=== PATIENT | female | born 1945 | race Caucasian/White ===

== ENCOUNTER 2024-09-29 07:41 | Emergency (ER) | payer MEDICARE, OTHER, SELFPAY ==
[2024-09-29 07:43] VITALS: BP 178/94
--- NOTE | 2024-09-29 08:39 | ED.GENMED ---
History of Present Illness
General
Chief Complaint: Fall
Source: patient
Time Seen by Provider: 09/29/24 08:25
History of Present Illness
History of Present Illness:
The patient is an 79-year-old female, currently experiencing a headache following a fall four days ago, during which she hit her head and developed a significant hematoma on her forehead. The incident occurred when she slipped and fell forward in
[place], and she is unsure if she lost consciousness. Her main complaint now is a persistent headache.
Following the fall, she received a computed tomography (CT) scan of her head in [place], which did not show any immediate need for additional intervention, although a repeat scan was suggested 12 hours later. However, she left the hospital before this
could be done. She reports ongoing pain in her head and has localized bruising, which has extended down into her chest. She complained of a headache, saying, 'Im hurting,' and believes her pain is linked to the incident, although she is uncertain if
the headache is worsening.
The patients fall does not appear to have been preceded by dizziness or other symptoms; she describes it as mechanical. She is particularly concerned due to her current use of the anticoagulant medication, Apixaban (Eliquis). She flew home last
night after not being fully reassured by the healthcare team in [place] regarding her condition.
She is also expressing concern about her vision, which is temporarily impaired due to swelling and discharge around her eyelashes, but states, without this, she can see normally. She did not believe she injured her knees in the fall but described
past issues with knee discomfort and stiffness.
Past History
Past History
ED Past Medical History: Other (Read and agree with the documented past medical history)
ED Past Surgical History: Other (Red and agree with past surgical history)
Social History
Personal:
Living: with family
Phy Exam
Physical Exam
Physical Exam:
General: Well-appearing female no acute respiratory distress
HEENT: Normocephalic large hematoma left forehead with overlying abrasion. There is settling ecchymosis throughout the face and into the upper chest
Heart: Regular rate and rhythm
Lungs: Clear no wheeze
Musculoskeletal exam: Mild diffuse paraspinous tenderness of the neck. Good range of motion all extremities slight tenderness to the anterior knees bilaterally
Neurologic exam: Alert and oriented conversing appropriately good strength to the upper and lower extremities
Course
Orders/Labs/Results
Orders:
Orders
09/29/24 08:36
CT Cervical Spine W/o Iv Contr Urgent
Comment:
Reason For Exam: fall
Lorazepam [Ativan] 0.5 mg IV NOW STA
CR Knee - Left 4 Or More View* Urgent
Comment:
Reason For Exam: fall
CR Knee- Right 4 Or More View* Urgent
Comment:
Reason For Exam: fall
09/29/24 08:37
CT Head W/o Iv Contrast Urgent
Comment:
Reason For Exam: fall
09/29/24 08:38
Acetaminophen [Tylenol] 650 mg PO NOW STA
09/29/24 08:57
Complete Blood Count/With Diff Urgent
Comprehensive Metabolic Panel Urgent
Abnormal Lab Results
09/29/24
08:57
MCH 31.7 H pg
(27.0-31.0)
Lymphocytes % 16.8 L %
(20.5-51.1)
Chloride 110 H mmol/L
(98-107)
Glucose 100 H mg/dl
(70-99)
Total Bilirubin 1.4 H mg/dl
(0.2-1.3)
09/29/24 08:57
09/29/24 08:57
Vital Signs
Initial and Last Documented VS:
Initial Vital Signs
Temp Pulse Resp BP Pulse Ox
98.0 F 64 16 178/94 94
09/29/24 07:43 09/29/24 07:43 09/29/24 07:43 09/29/24 07:43 09/29/24 07:43
Last Documented Vital Signs
Temp Pulse Resp BP Pulse Ox
98.0 F 64 16 178/94 94
09/29/24 07:43 09/29/24 07:43 09/29/24 07:43 09/29/24 07:43 09/29/24 07:43
MDM/Problems Addressed
Differential Diagnosis Includes:
The Differential Diagnosis includes, in no particular order and is not limited to:
- Subdural hematoma
- Concussion
- Traumatic brain injury
- Orbital fracture
- Post-traumatic headache
- Meningeal irritation
- Perform CT scan of the head and neck to assess for any delayed bleeding or further injuries due to anticoagulant use.
- X-ray the knees to evaluate for any unnoticed injury, given ongoing discomfort.
- Start an intravenous line to facilitate blood work and potential administration of medication.
- Administer Lorazepam for anxiety management prior to the CT scan due to patient expressed concern about claustrophobia and panic.
- Provide a dose of Acetaminophen for pain relief, withholding any oral intake until after imaging.
MDM/Problems Addressed:
Acute:
- Head injury with hematoma
- Headache
- Periorbital swelling with discharge
- Possible anxiety/panic related to imaging procedure
*Pulse Oximetry
Patient hypoxic: no
Comment: 94%
*Critical Care Note
Total Time (30-74mins, 75-104mins- exclusive of procedures): Not Applicable
Update Note
Update Note:
CT of head shows the following
1. 6 mm increased attenuation focus in the right cerebellum as above. Absence of any adjacent edematous changes suggests that this is more likely to represent small calcification rather than very small recent hemorrhage. Hemorrhage is not
definitively excluded and there are no prior studies for comparison. A short-term follow-up examination could be obtained as warranted to evaluate for stability.
Patient's injuries 4 days ago. No need for repeat CAT scan here. Neurologically she is intact. She is ambulatory. Wound care instructions and hematoma structures given. Advise follow-up with neurosurgeon
ED Attending Note
-
Portions of this chart may have been created with voice recognition software.� Occasional wrong word or��sound alike� substitutions may have occurred due to the inherent limitations of voice recognition software.
Discharge Plan
Departure
Patient Disposition: Home (Routine Discharge)
Date of Disposition: 09/29/24
Time of Disposition: 12:40
Patient with high blood pressure during this ER visit?: No
Discharge Problem:
Hematoma
Instructions: Concussion, Adult (DC), Wound Care (DC)
Prescriptions:
No Action
prednisone 20 MG tablet
40 mg PO DAILY Qty: 8 0RF
oxycodone-acetaminophen 5 MG/325 MG tablet
1 tab PO Q4HPRN PRN (Reason: pain) Qty: 10 0RF
Referrals:
Michelle Mullen MD [Active, Neurosurgery]
UNKNOWN - PT DOES,NOT KNOW [Family Provider]
Activity Restrictions/Additional Instructions:
Use tylenol for headache. return for worsening symptoms otherwise follow up with neurosurgery
Interventions
Interventions:
*Risk Screen - Suicide Last Done: 09/29/24 07:43
*General Assessment Last Done: 09/29/24 07:43
*Neglect/Abuse Screening Last Done: 09/29/24 11:28
*ED COVID-19 Vaccine History Last Done: 09/29/24 11:28
ED-Musculoskeletal Assessment Last Done: 09/29/24 11:06
ED- Neurological Assessment Last Done: 09/29/24 11:06
ED-Skin Assessment Last Done: 09/29/24 11:06
Discharge Date and Time
Print Language: TURKMEN
[2024-09-29] MEDS: TYLENOL 650 MG PO (09:00)
[2024-09-29] MEDS: ATIVAN 0.5 MG IV (09:00)
[2024-09-29 09:05] LABS: % Basophils 1.8 % (0-2); % Immature Granulocytes 0.3 % (0-0.5); % Lymphocytes 16.8 % (20.5-51.1); % Monocytes 6.8 % (1.7-9.3); % Neutrophils 71.3 % (42.2-75.2); Absolute Basophils 0.1 10^3/uL (0-0.2); Absolute Eosinophils 0.2 10^3/uL (0-0.7); Absolute Lymphocytes 1.2 10^3/uL (1.2-3.4); Absolute Monocytes 0.5 10^3/uL (0.1-0.6); Absolute Neutrophils 5.3 10^3/uL (1.4-6.5); Hematocrit 46.1 % (37.0-47.0); Hemoglobin 15.9 g/dL (12.0-16.0); Mean Corp Hgb Conc. 34.5 g/dL (33.0-37.0); Mean Corpuscular Hgb 31.7 pg (27.0-31.0); Mean Platelet Volume 9.9 fL (7.4-10.4); Nucleated Red Blood Cells % 0 %; Platelet Count 226 10^3/uL (130-400); Red Blood Cell Count 5.01 10^6/uL (4.20-5.40); Red Cell Dist. Width 13.8 % (11.5-14.5); White Blood Cell Count 7.4 10^3/uL (4.8-10.8)
[2024-09-29 09:34] LABS: ALT (SGPT) 13 U/L (0-35); AST (SGOT) 20 U/L (14-36); Albumin 4.2 g/dl (3.5-5.0); Alkaline Phosphatase 85 U/L (38-126); Blood Urea Nitrogen 16 mg/dl (7-17); Calcium 9.2 mg/dl (8.4-10.2); Carbon Dioxide 25 mmol/L (22-30); Chloride 110 mmol/L (98-107); Glucose 100 mg/dl (70-99); Potassium 4.5 mmol/L (3.5-5.1); Sodium 141 mmol/L (135-145); Total Bilirubin 1.4 mg/dl (0.2-1.3); Total Protein 6.8 g/dl (6.3-8.2); eGFR > 60.00
== END 2024-09-29 12:56 | disposition home or self-care (01) ==
LOC: EMR 07:41
PROVIDERS: Physician Assistant; EMERGENCY PHYSICIAN Emergency Medicine
DX: S00.83XA Contusion of other part of head, initial encounter (principal); S20.219A Contusion of unspecified front wall of thorax, initial encounter; W01.0XXA Fall on same level from slipping, tripping and stumbling without subsequent striking against object, initial encounter
CPT/HCPCS: 96374; 99284; 70450; 72125; 73564; 80053; 85025

== ENCOUNTER 2025-04-03 04:18 | Emergency (ER) | payer BC, MEDICARE, OTHER, SELFPAY ==
[2025-04-03 04:20] VITALS: BP 167/84
[2025-04-03 04:23] VITALS: BP 167/84
[2025-04-03 04:38] VITALS: BMI 710000.0
[2025-04-03 05:00] VITALS: BP 170/86
[2025-04-03 06:00] VITALS: BP 133/47
--- NOTE | 2025-04-03 06:01 | ED.GENMED ---
History of Present Illness
General
Chief Complaint: Nose Bleed
Source: patient
Time Seen by Provider: 04/03/25 04:19
Nursing documentation reviewed up to this point in time: agreed with
History of Present Illness
History of Present Illness:
Note:
CHIEF COMPLAINT(S)
Epistaxis (nosebleed) from the left nostril.
HISTORY OF PRESENT ILLNESS
The patient is an 80-year-old female with a history of atrial fibrillation, for which she is on Apixaban (Eliquis) therapy. She presented with a nosebleed, which has been ongoing for a couple of days. The patient seeks evaluation as the bleed seems
to now be coming predominantly from the left nostril and is accompanied by coughing. She reports that the bleeding initially started over the last couple of days, prompting her to visit her primary care physician the previous day. However, she was
then uncertain if the source of bleeding was exclusively from the nose or elsewhere, making it difficult for her to identify the exact site. The patient denies a history of frequent nosebleeds. She was stable upon arrival but began to bleed during
the encounter.
PAST MEDICAL AND SURIGICAL HISTORY
Atrial fibrillation (on Apixaban/Eliquis).
MEDICATIONS
Apixaban (Eliquis) once daily for atrial fibrillation.
PHYSICAL EXAM
General: Alert, no acute distress.
Skin: Warm, dry.
Head: Normocephalic, atraumatic.
Neck: Supple, trachea midline.
Eyes, Ears, Nose, and Throat: Oral mucosa moist. Bleeding observed from the left nostril, with noted blood clotting.
Cardiovascular: Normal peripheral perfusion, No edema.
Respiratory: Respirations are non-labored.
Gastrointestinal: Abdomen nondistended.
Back: Normal range of motion, Normal alignment.
Musculoskeletal: Normal range of motion, normal strength.
Neurological: Alert and oriented to person, place, time, and situation, No focal neurological deficit observed.
Psychiatric: Cooperative, appropriate mood & affect.
PLAN
Insert nasal packing with phenylephrine-impregnated material to constrict blood vessels and control the bleeding.
Advise patient not to manipulate or touch the packing to prevent further bleeding.
Reassess the efficacy of the nasal packing after approximately 30 minutes. If bleeding persists, consider additional interventions.
DIFFERENTIAL DIAGNOSIS
The Differential Diagnosis includes, in no particular order and is not limited to:
1. Epistaxis secondary to anticoagulation therapy (Apixaban).
2. Hypertension-induced epistaxis.
3. Dryness or irritation of the nasal mucosa.
4. Intranasal lesions or neoplasm.
5. Coagulation disorders.
6. Trauma to the nasal passages.
7. Vascular malformations within the nasal cavity.
8. Infectious causes leading to mucosal compromise.
9. Systemic conditions such as anemia.
10. Autoimmune conditions affecting mucosal integrity.
Disposition:
SUMMARY OF ENCOUNTER
An 80-year-old female with a history of atrial fibrillation on Apixaban presented to the emergency department with a nosebleed predominantly from the left nostril. Upon arrival, the bleeding had mostly stopped, but a re-bleeding episode occurred.
Nasal packing with a Merocel was applied to the left nostril, left in place for about 45 minutes, after which bleeding had ceased. The Merocel was not saturated. An area of fresh extravascularization was noted and successfully cauterized. The
patient tolerated the procedure well and expressed a desire to be discharged.
DISPOSITION
Discharge
PLAN
- Discharge the patient with instructions to follow up with ENT as needed.
- Advise the patient on signs of re-bleeding to watch for and actions to take if it occurs.
- Ensure no packing remains in place upon discharge.
PROCEDURES
- Nasal packing with Merocel applied to the left nostril for 45 minutes.
- Cauterization of the identified area of fresh extravasation in the left nostril.
PATIENT EDUCATION AND COUNSELING
The patient was counseled on monitoring for signs of re-bleeding and instructed to follow up with ENT as needed.
FOLLOW-UP INSTRUCTIONS
The patient is advised to follow up with ENT as necessary, particularly if there is any recurrence of the nosebleed.
MEDICATION RECONCILIATION
Apixaban (Eliquis) for atrial fibrillation.
MEDICAL DECISION MAKING
- Number and Complexity of Problems Addressed: Chronic conditions affecting care [Atrial fibrillation on Apixaban]
- Data:
Category 1:
- Reviewed non-emergency department records concerning patients current medication regimen (Apixaban).
- Risk: Prescription drug management noted due to the patient being on Apixaban, which affects bleeding risk.
DIAGNOSIS
- Epistaxis, likely exacerbated by anticoagulation therapy (ICD-10: R04.0)
Past History
Past History
ED Past Medical History: Other (Read and agree with the documented past medical history)
ED Past Surgical History: Other (Red and agree with past surgical history)
Social History
Personal:
Living: with family
Phy Exam
Physical Exam
Physical Exam:
.
Course
Orders/Labs/Results
Orders:
Orders
04/03/25 04:55
Phenylephrine 0.5% Regular Spr [Ivan-Synephrine 0.5% Nasal [place]] 1 spray .ROUTE .STK-MED ONE
Vital Signs
Initial and Last Documented VS:
Initial Vital Signs
BP
167/84
04/03/25 04:20
Last Documented Vital Signs
Temp Pulse Resp BP Pulse Ox
98.4 F 60 16 133/47 96
04/03/25 04:23 04/03/25 07:07 04/03/25 07:07 04/03/25 07:07 04/03/25 07:07
*Pulse Oximetry
SaO2: 90
Oxygen Mode of Delivery: Room air
Patient hypoxic: no
*Critical Care Note
Total Time (30-74mins, 75-104mins- exclusive of procedures): Not Applicable
ED Attending Note
-
Portions of this chart may have been created with voice recognition software.� Occasional wrong word or��sound alike� substitutions may have occurred due to the inherent limitations of voice recognition software.
Discharge Plan
Departure
Patient Disposition: Home (Routine Discharge)
Date of Disposition: 04/03/25
Time of Disposition: 06:02
Patient with high blood pressure during this ER visit?: Yes
Condition: Good
Discharge Problem:
Epistaxis
Instructions: Nosebleeds (DC), BLOOD PRESSURE
Prescriptions:
New
cephalexin 250 mg capsule
250 mg PO BID 7 Days Qty: 14 0RF
No Action
prednisone 20 MG tablet
40 mg PO DAILY Qty: 8 0RF
oxycodone-acetaminophen 5 MG/325 MG tablet
1 tab PO Q4HPRN PRN (Reason: pain) Qty: 10 0RF
Referrals:
Ben Winn MD [Active, Otology]
NONE,* [Family Provider, Internal Medicine]
Activity Restrictions/Additional Instructions:
Thank You for choosing [facility].
It was a pleasure meeting you and taking part in your care. We hope for your continued healing and wellness.
Please read discharge instructions in their entirety. However, they are for general education and may not describe your exact diagnosis at discharge. Information on your ER visit and medical conditions were discussed with you along with appropriate
follow up information...
If indicated, please take your medications as instructed and indicated on discharge paperwork.
Please schedule a follow up appointment as directed. Call to schedule an appointment
Please return to the emergency department with ANY change in, persisting, or worsening of symptoms. If any of your symptoms do not improve, or persist, or become more severe within 6-12 hours, please return to the emergency department for further
care.
Please return to the emergency department if you develop a headache, neck pain/stiffness, fever greater than 100.4F, chest pain, shortness of breath, persistent nausea, vomiting, slurred speech, difficulty walking, numbness/tingling, weakness, signs
of infection or any other symptoms that are worrisome to you.
If you have any questions or concerns please do not hesitate to call the Hospital at .
Interventions
Interventions:
*General Assessment Last Done: 04/03/25 04:34
*Neglect/Abuse Screening Last Done: 04/03/25 04:35
*ED COVID-19 Vaccine History Last Done: 04/03/25 04:36
*ED Influenza Vaccine History Last Done: 04/03/25 05:03
[facility] Risk Assessment Tool Last Done: 04/03/25 05:03
*Risk Screen - Suicide (C-SSRS) Last Done: 04/03/25 04:41
*Nursing Disposition Last Done: 04/03/25 07:07
ED-EENT Assessment Last Done: 04/03/25 04:39
Discharge Date and Time
Discharge Date/Time: 04/03/25 07:09
Print Language: [id number]
[2025-04-03 07:07] VITALS: BP 133/47
== END 2025-04-03 07:09 | disposition home or self-care (01) ==
LOC: EMR 04:18
PROVIDERS: EMERGENCY PHYSICIAN Student in an Organized Health Care Education/Training Program
DX: R04.0 Epistaxis (principal); I48.91 Unspecified atrial fibrillation; Z79.01 Long term (current) use of anticoagulants
CPT/HCPCS: 99282; 30901